=== PATIENT | male | born 1950 | race Caucasian/White ===

== ENCOUNTER 2017-01-12 19:14 | Emergency (ER) | payer MEDICARE, OTHER ==
[~2017-01-12] VITALS: Ht 177.8 cm; Wt 79.0 kg
[~2017-01-12 19:14] MED LIST: PRED50 PO; VENTAER INH
[2017-01-12 19:16] VITALS: BP 188/105; PULSE 91; RESP 16; TEMP 98.2; O2SAT 99
--- NOTE | 2017-01-12 19:45 | PD ---
Physical Exam Date Seen by Provider: Jan 12, 2017 Time Seen by Provider: 19:42 Narrative Patient seen in triage with complaints of urinary retention. Patient here visiting from [place] who Has Hx. Bladder Ca. Patient states Hematuria passing clots. Patient denies Fever, Chills, Nausea, or flank pain. Passing very small amounts of urine for the past 24 hours, with increased Lower Abdominal pain. Vital Signs Stable. Patient awaiting bed Placement. Data Data Last Documented VS Vital Signs Date Time Temp Pulse Resp B/P Pulse Ox O2 Delivery O2 Flow Rate FiO2 01/12/17 19:16 98.2 91 16 188/105 99 Room Air [facility] Medical Record Reviewed: Yes Supervised Visit with ABRIL: Yes Narrative Course 20:55 hrs. Patient left AMA. Disposition: 07 AGAINST MEDICAL ADVICE Condition: Stable Gatito Weller Jan 12, 2017 19:45
== END 2017-01-12 20:55 | disposition left against medical advice (07) ==
LOC: NED 19:14
DX: R33.9 Retention of urine, unspecified (principal); R31.9 Hematuria, unspecified; R10.30 Lower abdominal pain, unspecified; Z85.51 Personal history of malignant neoplasm of bladder; Z53.20 Procedure and treatment not carried out because of patient's decision for unspecified reasons
CPT/HCPCS: 99282

== ENCOUNTER 2017-01-16 09:56 | Emergency (ER) | payer MEDICARE, OTHER ==
[~2017-01-16] VITALS: Ht 175.3 cm; Wt 80.0 kg
[2017-01-16 09:58] VITALS: BP 170/90; PULSE 102; RESP 20; TEMP 98.7; O2SAT 98
--- NOTE | 2017-01-16 11:04 | PD ---
HPI Chief Complaint: Complaint Time Seen by Provider: 11:04 Travel History International Travel<30 days: No Contact w/Intl Traveler<30days: No Traveled to known affect area: No History of Present Illness HPI 66-year-old male came to the emergency room with history of hematuria. Patient says that this started and this morning. Patient last urinated and emptied his bladder at 3 last night but since the bleeding has started he has been passing large blood clots and is unable to empty his bladder. He was very uncomfortable in the ER and went to the bathroom multiple times. He has history of bladder tumor. He is from [place]. He has a urologist who did a cystoscopy and scraped the tumor as per his last November. He has had hematuria in the past. Patient is not on any blood thinners. He is uncomfortable because of the bladder retention. He has tachycardia in triage. No history of fever or chills. Patient says he finished a 10 day course of Macrobid last week. PFS Past Medical History Narrative Medical List of his past medical, surgical, social and family history was reviewed from the nursing note. Hx Anticoagulant Therapy: Yes (ASA) Asthma: Yes Cardiovascular Problems: Yes (HTN) High Cholesterol: Yes Hypertension: Yes Respiratory: Yes (ASTHMA) Immunizations Current: Yes Past Surgical History Joint Replacement: Yes (RIGHT HIP REPLACEMENT 2007) Other Surgery: Yes (SINUS) Social History Alcohol Use: Yes Tobacco Use: No Substance Use: No Allergies-Medications (Allergen,Severity, Reaction): Coded Allergies: Sulfa (Verified Allergy, Unknown, 01/16/17) Comments List of his allergy reviewed from the nurse's note. Reported Meds & Prescriptions Reported Meds & Active Scripts Active Macrobid (Nitrofurantoin Monoh/Nitrofur Macro) 100 Mg Cap 100 Mg PO BID 10 Days Reported Lexapro (Escitalopram Oxalate) 10 Mg Tab 10 Mg PO DAILY Celebrex (Celecoxib) 100 Mg Cap 100 Mg PO DAILY Nexium (Esomeprazole DR) 40 Mg Capdr 40 Mg PO DAILY Narrative Medication List of his home medications reviewed from the nursing note. Review of Systems Except as stated in HPI: all other systems reviewed are Neg Physical Exam Narrative GENERAL: Awake, alert, anxious, moderate distress SKIN: Focused skin assessment warm/dry. HEAD: Atraumatic. Normocephalic. EYES: Pupils equal and round. No scleral icterus. No injection or drainage. ENT: No nasal bleeding or discharge. Mucous membranes pink and moist. NECK: Trachea midline. No JVD. CARDIOVASCULAR: Regular rate and rhythm. No murmur appreciated. RESPIRATORY: No accessory muscle use. Clear to auscultation. Breath sounds equal bilaterally. GASTROINTESTINAL: Abdomen soft, non-tender, nondistended. Hepatic and splenic margins not palpable. MUSCULOSKELETAL: No obvious deformities. No clubbing. No cyanosis. No edema. NEUROLOGICAL: Awake and alert. No obvious cranial nerve deficits. Motor grossly within normal limits. Normal speech. PSYCHIATRIC: Appropriate mood and affect; insight and judgment normal. Data Data Last Documented VS Vital Signs Date Time Temp Pulse Resp B/P Pulse Ox O2 Delivery O2 Flow Rate FiO2 01/16/17 15:14 93 17 100 Room Air 01/16/17 09:58 98.7 170/90 Orders Complete Blood Count With Diff (01/16/17 11:31) Basic Metabolic Panel (Bmp) (01/16/17 11:31) Urinalysis - C+S If Indicated (01/16/17 11:31) Ecg Monitoring (01/16/17 11:31) Iv Access Insert/Monitor (01/16/17 11:31) Sodium Chloride 0.9% Flush (Ns Flush) (01/16/17 11:45) Type And Screen (01/16/17 11:31) Bladder/Catheter Irrigation (01/16/17 11:31) Prothrombin Time / Inr (Pt) (01/16/17 13:41) Bag, Leg 32oz Sterile Large Ea (01/16/17 15:56) Urine Culture (01/16/17 15:20) Nitrofurantoin Monohyd Macrocr (Macrobid (01/16/17 16:30) Labs Laboratory Tests Test 01/16/17 01/16/17 01/16/17 12:30 12:35 15:20 Blood Type A POSITIVE Antibody Screen NEGATIVE Blood Bank Comment White Blood Count 9.9 TH/MM3 Red Blood Count 2.96 MIL/MM3 Hemoglobin 9.1 GM/DL Hematocrit 27.2 % Mean Corpuscular Volume 92.1 FL Mean Corpuscular Hemoglobin 30.8 PG Mean Corpuscular Hemoglobin 33.5 % Concent Red Cell Distribution Width 13.2 % Platelet Count 235 TH/MM3 Mean Platelet Volume 8.7 FL Neutrophils (%) (Auto) 83.2 % Lymphocytes (%) (Auto) 5.8 % Monocytes (%) (Auto) 10.0 % Eosinophils (%) (Auto) 0.5 % Basophils (%) (Auto) 0.5 % Neutrophils # (Auto) 8.3 TH/MM3 Lymphocytes # (Auto) 0.6 TH/MM3 Monocytes # (Auto) 1.0 TH/MM3 Eosinophils # (Auto) 0.0 TH/MM3 Basophils # (Auto) 0.1 TH/MM3 CBC Comment DIFF FINAL Differential Comment Prothrombin Time 10.4 SEC Prothromb Time International 0.9 RATIO Ratio Sodium Level 141 MEQ/L Potassium Level 3.9 MEQ/L Chloride Level 106 MEQ/L Carbon Dioxide Level 20.9 MEQ/L Anion Gap 14 MEQ/L Blood Urea Nitrogen 18 MG/DL Creatinine 1.55 MG/DL Estimat Glomerular Filtration 45 ML/MIN Rate Random Glucose 156 MG/DL Calcium Level 8.8 MG/DL Urine Color DARK-RED Urine Turbidity CLOUDY Urine pH 7.0 Urine Specific [place] 1.013 Urine Protein 100 mg/dL Urine Glucose (UA) NEG mg/dL Urine Ketones 10 mg/dL Urine Occult Blood LARGE Urine Nitrite NEG Urine Bilirubin NEG Urine Urobilinogen 2.0 MG/DL Urine Leukocyte Esterase SMALL Urine RBC /hpf Urine WBC 42 /hpf Urine WBC Clumps Microscopic Urinalysis Comment CULTURE INDICATED MDM Medical Decision Making Medical Screen Exam Complete: Yes Emergency Medical Condition: Yes Medical Record Reviewed: Yes Differential Diagnosis Urinary retention, hematuria, bladder tumor Narrative Course 3:59 PM patient had to bag soft bladder irrigation done. The fluid was clear but padma-colored. Blood test results came back and he slightly anemic. I'm comfortable at this point working him up with a leg bag and discharging him. Had a lengthy discussion with him and his and they're comfortable with the plan. The plan to go back to [place] tomorrow or day after. I have let him know that as soon as he goes back home he needs to contact his urologist and see him. Based on my ultrasound seems like the tumor is large enough which is probably the reason is bleeding and probably an obstruction since it seems to be at the neck of the bladder. They understand and they're comfortable with the plan. Procedures Procedure Narrative Emergency Department Pelvic ultrasound was performed with patient consent. The curvilinear probe was used in the transverse and sagittal views within the suprapubic region revealing distended bladder with a large mass on the inferior aspect of the bladder. It looks heterogeneous in consistency. EKG Prior to Arrival: No Diagnosis Primary Impression: Hematuria Additional Impressions: Bladder tumor UTI (urinary tract infection) Qualified Code: N39.0 - Urinary tract infection with hematuria, site unspecified Referrals: Primary Care Physician Additional Instructions: Please follow-up with your primary care but most importantly your urologist as soon as you go back home. These return to the ER if the bleeding gets worse and there is obstruction again. Take care of the catheter and the leg bag as per the nurses education instructions. Med/Other Pt SpecificInfo: Prescription(s) given Scripts Nitrofurantoin Monohydrate Macrocrystals (Macrobid)100 Mg [id number] Mg PO BID 10 Days Ref 0 Prov:Sunday House MD 01/16/17 Disposition: 01 DISCHARGE HOME Condition: Stable Sunday House MD Jan 16, 2017 11:04
[2017-01-16] MEDS ORDERED: LEXA10TA PO (11:08)
[2017-01-16] MEDS ORDERED: CELE100C PO (11:08)
[2017-01-16] MEDS ORDERED: NEXI40CA PO (11:08)
[2017-01-16] MEDS ORDERED: SODIUM CHLORIDE 0.9% FLUSH 10 ML FLUSH IVF PRN (11:45)
[2017-01-16 12:58] LABS: AUTOMATED NEUTROPHIL # 8.3 TH/MM3 (1.8-7.7); BASOPHIL # 0.1 TH/MM3 (0-0.2); BASOPHIL % 0.5 % (0.0-2.0); EOSINOPHIL % 0.5 % (0.0-4.0); HEMATOCRIT 27.2 % (39.0-51.0); HEMO FLAGS DIFF FINAL; LYMPH % 5.8 % (9.0-44.0); LYMPHOCYTE # 0.6 TH/MM3 (1.0-4.8); MEAN CELL VOLUME 92.1 FL (80.0-100.0); MEAN CORPUSCULAR HEMOGLOBIN 30.8 PG (27.0-34.0); MEAN CORPUSCULAR HGB CONC 33.5 % (32.0-36.0); NEUT % 83.2 % (16.0-70.0); PLATELET COUNT 235 TH/MM3 (150-450); RED BLOOD COUNT 2.96 MIL/MM3 (4.50-5.90); RED CELL DISTRIBUTION WIDTH 13.2 % (11.6-17.2); WHITE BLOOD COUNT 9.9 TH/MM3 (4.0-11.0)
[2017-01-16 13:15] LABS: BICARBONATE 20.9 MEQ/L (21.0-32.0); POTASSIUM 3.9 MEQ/L (3.5-5.1)
[2017-01-16 14:26] LABS: INTERNATIONAL NORMALIZED RATIO 0.9 RATIO; PROTHROMBIN TIME - PATIENT 10.4 SEC (9.8-11.6)
[2017-01-16 15:14] VITALS: PULSE 93; RESP 17; O2SAT 100
[2017-01-16 16:12] LABS: BLOOD, URINE LARGE (NEG); COMMENT (UR) CULTURE INDICATED; CULTURE IF INDICATED CULTURE INDICATED; GLUCOSE,URINE NEG (NEG); KETONE, URINE 10 mg/dL (NEG); NITRITE,URINE NEG (NEG); URINE COLOR DARK-RED (YELLW/STRAW)
[2017-01-16] MEDS ORDERED: MACR100C2 PO (16:27)
[2017-01-16] MEDS ORDERED: NITROFURANTOIN MONOHYD MACROCR 100 MG CAP PO ONE (16:30)
== END 2017-01-16 16:49 | disposition home or self-care (01) ==
LOC: NEPC 09:56
DX: N39.0 Urinary tract infection, site not specified (principal); R31.9 Hematuria, unspecified
CPT/HCPCS: 51700; 80048; 81001; 85025; 85610; 86850; 86900; 86901; 87086